=== PATIENT | male | born 1965 | race African-American/Black ===

== ENCOUNTER 2019-08-27 17:31 | Emergency (ER) | payer MEDICAID ==
[~2019-08-27] VITALS: Ht 175.3 cm; Wt 90.0 kg
[2019-08-27] MEDS ORDERED: IBUPROFEN 800MG TABLET PO ONE (18:00)
[2019-08-28] MEDS ORDERED: IBUPROFEN 400MG TABLET PO ONE (09:15)
[2019-08-28 09:16] VITALS: BP 128/73
== END 2019-08-28 09:34 | disposition home or self-care (01) ==
LOC: ER 17:31
DX: M79.661 Pain in right lower leg (principal)
CPT/HCPCS: 73590; 99285

== ENCOUNTER 2019-09-08 07:48 | Emergency (ER) | payer MEDICAID ==
[~2019-09-08] VITALS: Ht 175.3 cm; Wt 91.0 kg
[2019-09-08 08:10] VITALS: BP 149/77
[2019-09-08] MEDS ORDERED: IBUPROFEN 800MG TABLET PO ONE (09:00)
[2019-09-08] MEDS ORDERED: ACETAMINOPHEN 500MG TABLET PO ONE (09:00)
== END 2019-09-08 10:57 | disposition home or self-care (01) ==
LOC: ER 07:48
DX: M70.61 Trochanteric bursitis, right hip (principal); R03.0 Elevated blood-pressure reading, without diagnosis of hypertension; Y93.89 Activity, other specified; W01.198A Fall on same level from slipping, tripping and stumbling with subsequent striking against other object, initial encounter; Y92.481 Parking lot as the place of occurrence of the external cause
CPT/HCPCS: 73502; 99283

== ENCOUNTER 2019-09-16 13:39 | Emergency (ER) | payer MEDICAID ==
[~2019-09-16] VITALS: Ht 175.3 cm; Wt 98.0 kg
[2019-09-16 13:56] VITALS: BP 146/84
[2019-09-16] MEDS ORDERED: HYDROCODONE/ACETAMINOPHEN 5/325MG TABLET PO STA (14:52)
== END 2019-09-16 16:29 | disposition home or self-care (01) ==
LOC: ER 13:39
DX: S73.101A Unspecified sprain of right hip, initial encounter (principal); W01.0XXA Fall on same level from slipping, tripping and stumbling without subsequent striking against object, initial encounter; Y93.89 Activity, other specified; Y92.89 Other specified places as the place of occurrence of the external cause; Y99.8 Other external cause status
CPT/HCPCS: 73502; 99283

== ENCOUNTER 2020-03-07 21:51 | Emergency (ER) | payer MEDICAID ==
[~2020-03-07] VITALS: Ht 175.3 cm; Wt 90.0 kg
[2020-03-07] MEDS ORDERED: AZITHROMYCIN 500 MG TABLET PO ONE (22:30)
[2020-03-07] MEDS ORDERED: ONDANSETRON 4MG ODT PO ONE (22:45)
[2020-03-07] MEDS ORDERED: AMOXICILLIN 500 MG CAPSULE PO ONE (22:45)
[2020-03-08 01:18] VITALS: BP 165/89
== END 2020-03-08 01:20 | disposition home or self-care (01) ==
LOC: ER 22:13
DX: Z03.818 Encounter for observation for suspected exposure to other biological agents ruled out (principal); R05 Cough; R06.02 Shortness of breath; R50.9 Fever, unspecified; R51.9 Headache, unspecified
CPT/HCPCS: 71045; 87426; 99284; Q0162